=== PATIENT | female | born 1990 | race Caucasian/White ===

== ENCOUNTER 2018-11-29 09:51 | Inpatient (IN) ==
[2018-11-29] MEDS ORDERED: TYLENOL PO PRN (12:15)
[2018-11-29] MEDS ORDERED: PHENOBARBITAL IV PRN (12:15)
[2018-11-29] MEDS ORDERED: SINEMET 25/100 PO PRN (12:15)
[2018-11-29] MEDS ORDERED: MOTRIN PO PRN (12:15)
[2018-11-29] MEDS ORDERED: IMODIUM PO PRN (12:15)
[2018-11-29] MEDS ORDERED: BENTYL PO PRN (12:15)
[2018-11-29] MEDS ORDERED: ZOFRAN IV PRN (12:15)
[2018-11-29] MEDS ORDERED: D5W 1,000 ML IV PRN (12:15)
[2018-11-29] MEDS ORDERED: SENOKOT PO PRN (12:15)
[2018-11-29] MEDS ORDERED: DULCOLAX PR PRN (12:15)
[2018-11-29] MEDS ORDERED: TUBERSOL ID ONE (12:15)
[2018-11-29] MEDS ORDERED: NICODERM PATCH TD PRN (12:15)
[2018-11-29] MEDS ORDERED: SUBOXONE 2 MG/0.5 MG FILM SL SCH (12:15)
[2018-11-29] MEDS ORDERED: LIBRIUM PO PRN (12:15)
[2018-11-29] MEDS ORDERED: DESYREL PO PRN (12:15)
[2018-11-29] MEDS ORDERED: MAALOX PLUS LIQUID PO PRN (12:15)
[2018-11-29] MEDS ORDERED: ZOFRAN ODT PO PRN (12:15)
[2018-11-29 12:55] LABS: UR AMPHETAMINES QUAL NONE DETECTED (NONE DETECT); UR BARBITUATES QUAL NONE DETECTED (NONE DETECT); UR BENZODIAZEPIN QUAL NONE DETECTED (NONE DETECT); UR CANNABINOIDS QUAL NONE DETECTED (NONE DETECT); UR COCAINE QUAL NONE DETECTED (NONE DETECT); UR METHADONE QUAL NONE DETECTED (NONE DETECT); UR METHAMPHETAMINE QUAL NONE DETECTED (NONE DETECT); UR OPIATES QUAL NONE DETECTED (NONE DETECT); UR OXYCODONE QUAL NONE DETECTED (NONE DETECT); UR PCP QUAL NONE DETECTED (NONE DETECT); UR PROPOXYPHENE QUAL NONE DETECTED (NONE DETECT); UR TCA QUAL NONE DETECTED (NONE DETECT)
[2018-11-29 12:59] LABS: HEMATOCRIT 36.2 % (37.0-47.0); HEMOGLOBIN 12.1 g/dL (12.0-16.0); MCH 32.2 PG (27-31); MCHC 33.4 g/dL (33-37); MCV 96.3 FL (81-99); MPV 9.5 FL (7.4-10.4); RBC 3.76 XMIL (4.2-5.4); WBC 7.2 X1000 (4.8-10.8)
[2018-11-29 13:21] LABS: AGAP 11; ALBUMIN 4.2 g/dL (3.5-5.0); ALKALINE PHOSPHATASE 89 U/L (32-104); BUN 8 mg/dL (8-22); CALCIUM 8.1 mg/dL (8.8-10.2); CHLORIDE 104 mmol/L (98-107); COSMO 281; CREATININE 0.5 mg/dL (0.5-0.9); ESTIMATED GFR > 60; GLUCOSE 97 mg/dL (70-104); GOT 15 U/L (10-30); GPT 16 U/L (10-36); POTASSIUM 4.6 mmol/L (3.5-5.1); SODIUM 142 mmol/L (136-145); TCO2 27 mmol/L (25-35); TOTAL BILIRUBIN < 0.15 mg/dL (0.20-1.00); TOTAL PROTEIN 7.2 g/dL (6.3-8.3)
[2018-11-29 13:30] LABS: INR 0.85
[2018-11-29 13:31] LABS: AMYLASE 54 U/L (20-200); LIPASE 16 U/L (13-60)
[2018-11-29 15:13] LABS: URINE SOURCE CLEAN CATCH
[2018-11-29 15:23] LABS: BILIRUBIN URINE NEGATIVE (NEGATIVE); BLOOD URINE NEGATIVE (NEGATIVE); CLARITY CLEAR (CLEAR); COLOR YELLOW; GLUCOSE URINE NEGATIVE (NEGATIVE); KETONE URINE NEGATIVE (NEGATIVE); LEUKOCYTES URINE NEGATIVE (NEGATIVE); NITRITE URINE NEGATIVE (NEGATIVE); PROTEIN URINE NEGATIVE (NEGATIVE); UROBILINOGEN URINE NORMAL
[2018-11-29] MEDS: SUBOXONE 2 MG/0.5 MG FILM SL SCH (19:47)
[2018-11-29] MEDS: ROBAXIN PO PRN (23:17)
[2018-11-29] MEDS: SEROQUEL PO PRN (23:17)
[2018-11-29] MEDS: ATARAX PO PRN (23:26)
[2018-11-30] MEDS: SUBOXONE 2 MG/0.5 MG FILM SL SCH ×2 (06:44→17:58)
[2018-11-30] MEDS: PROTONIX PO SCH (06:44)
[2018-11-30] MEDS: THERA M PLUS PO SCH (09:52)
[2018-11-30] MEDS: FOLIC ACID PO SCH (09:53)
[2018-11-30] MEDS: VITAMIN B-1 PO SCH (09:53)
[2018-11-30] MEDS: PREDNISONE PO SCH ×2 (10:01→21:33)
[2018-11-30] MEDS: ROBAXIN PO PRN (12:52)
[2018-11-30] MEDS: ATARAX PO PRN (12:53)
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
--- NOTE | 2018-11-30 16:21 | PROGRESS NOTE ---
DATE: 11/30/2018 SUBJECTIVE: The patient notes that she is starting to feel a little bit better, less muscle aches. Denies any nausea or vomiting. Denies any fevers. PHYSICAL EXAMINATION: Vital Signs: Temperature 97 degrees, pulse 88, respiratory 20, BP 96/51. General: Patient is awake, alert. She is in no distress. HEENT: Normocephalic. Neck: Supple. CV: Regular rate. No murmurs. Chest: Clear. Abdomen: Soft. Extremities: Moves all extremities. ASSESSMENT: 1. Nausea and vomiting. 2. Abdominal pain. 3. Myalgias. 4. Paresthesias. 5. Paroxysmal sweating. 6. Polysubstance use and abuse. PLAN: We will continue patient in the hospital. Continue counseling. Continue Suboxone. Further orders as needed. -7 cc: Ryan Patel MD
--- NOTE | 2018-11-30 16:21 | PROGRESS NOTE ---
DATE: 11/30/2018 SUBJECTIVE: Patient states she feels terrible this morning. Notes that she was feeling much better on the 4 mg dose. However, when she decreased to the 10 mg dose, started having abdominal pain, muscle aches and sweating again. PHYSICAL EXAMINATION: Vital Signs: Reviewed and stable. She is awake, alert. She is in no current respiratory distress, although she is somewhat ill appearing. She is more fidgety, anxious than she was on yesterday's exam. Vital Signs: Temperature 97.5, pulse 88, respiratory 20, BP 98/51. HEENT: Normocephalic. Neck: Supple. Cardiovascular: Regular rate. No murmurs. Chest: Clear, nonlabored. Abdomen: Soft, nondistended. Extremities: Moves all extremities. Neurologic: No changes. ASSESSMENT: 1. Nausea and vomiting. 2. Abdominal pain. 3. Myalgias. 4. Paresthesias. 5. Paroxysmal sweating. 6. Opiate abuse withdrawal and stabilization. PLAN: We will increase her suboxone to see if helps with her symptoms. Continue counseling. cc: Ryan Patel MD MTD
[2018-11-30] MEDS: SEROQUEL PO PRN (21:33)
[2018-12-01] MEDS: PROTONIX PO SCH (06:22)
[2018-12-01] MEDS: SUBOXONE 2 MG/0.5 MG FILM SL SCH (06:23)
[2018-12-01] MEDS ORDERED: [UNRECOGNIZED DRUG - OTHER] PO SCH (09:45)
[2018-12-01] MEDS: PREDNISONE PO SCH ×2 (10:10→21:57)
[2018-12-01] MEDS: FOLIC ACID PO SCH (10:10)
[2018-12-01] MEDS: VITAMIN B-1 PO SCH (10:10)
[2018-12-01] MEDS: THERA M PLUS PO SCH (10:10)
[2018-12-01] MEDS: ATARAX PO PRN ×2 (11:03→22:00)
[2018-12-01] MEDS: PATIENT'S OWN MED PO SCH (15:10)
[2018-12-01] MEDS: SUBOXONE 8 MG/2 MG FILM SL SCH ×2 (18:54→21:58)
[2018-12-01] MEDS: SEROQUEL PO PRN (21:57)
[2018-12-01] MEDS: ROBAXIN PO PRN (21:57)
[2018-12-02] MEDS: PROTONIX PO SCH (06:12)
[2018-12-02] MEDS: VITAMIN B-1 PO SCH (08:18)
[2018-12-02] MEDS: THERA M PLUS PO SCH (08:19)
[2018-12-02] MEDS: PREDNISONE PO SCH (08:19)
[2018-12-02] MEDS: FOLIC ACID PO SCH (08:19)
[2018-12-02] MEDS: SUBOXONE 8 MG/2 MG FILM SL SCH (08:19)
[2018-12-02] MEDS: PATIENT'S OWN MED PO SCH (08:19)
--- NOTE | 2018-12-02 11:36 | PROGRESS NOTE ---
DATE: 12/01/2018 SUBJECTIVE: Patient notes overall she is feeling a lot better, but still having some withdrawal symptoms, still having muscle aches and sweating. OBJECTIVE: General: Reviewed and stable, she is awake, alert. She is in no current distress. Vitals: Temperature 97.5 degrees, pulse 88, respiratory rate 20, blood pressure stable. HEENT: Normocephalic. Neck: Supple. Cardiovascular: Regular rate. No murmurs. Chest: Clear. Abdomen: Soft. Extremities: Moves all extremities. ASSESSMENT: 1. Nausea and vomiting. 2. Abdominal pain. 3. Myalgias. 4. Paresthesias. 5. History of HIV. 6. Polysubstance use and abuse. PLAN: 1. We will increase patient's Suboxone to 8 mg. We will attempt to restart her HIV medication if she is able to get someone to bring that to her. The hospital does not currently have medication that she is on at home, although she notes she has not been taking it on any regular basis. 2. We will increase Suboxone as she tolerates. Hopefully she can discharge home over the next 1 or 2 days. cc: Ryan Patel MD
[2018-12-02 11:38] VITALS: BP 114/74
--- NOTE | 2018-12-02 13:59 | DISCHARGE SUMMARY ---
ADMISSION DATE: 11/29/2018 DISCHARGE DATE: 12/02/2018 DISCHARGE DIAGNOSES: 1. Nausea and vomiting. 2. Abdominal pain. 3. Myalgias. 4. Paresthesias. 5. Paroxysmal sweating. 6. Opiate abuse, withdrawal, and stabilization, 7. Chronic anxiety and depression. 8. Human immunodeficiency virus. 9. Bipolar. CONSULTATIONS: None. PROCEDURES: None. BRIEF HOSPITAL COURSE: Patient is a 28-year-old female who presented to [facility] program secondary to nausea, vomiting, abdominal pain, myalgias, and paresthesias. She has been abusing opiates. We admitted her to the hospital, stabilized her on Suboxone. We did have to increase the dose to 8 mg to fully improve her withdrawal symptoms. Otherwise, she had an uneventful hospital course. She was not restarted on her HIV medication as she apparently does not have this prescription at home and the pharmacy from the hospital also does not have it. DISPOSITION: Patient will be discharged home. Discussed with patient that it would be highly unlikely that Suboxone would cause weight gain and Subutex would not. Discussed that we do not have Subutex unless you are or have recently been on methadone and either way, that is a finite prescription. She will continue on Suboxone at home. I did discuss with her the importance of calling her HIV Clinic, Clinic, at [place] first thing in the morning to make sure what dose and what medication that they want her to be on for her HIV. Discussed with her the importance of avoidance of all triggers to include people, places, and situations. TIME SPENT: Greater than 30 minutes were spent in total care. cc: Ryan Patel MD MTDD
== END 2018-12-02 14:55 | disposition home or self-care (01) | DRG 897 ==
LOC: P.DIRADM 10:18 → P.MEDSURG 10:36
PROVIDERS: ADMIT Family Medicine; ATTEND Family Medicine
CPT/HCPCS: 80053; 80101; 80104; 80196; 80301; 80305; 80307; 80320; 80324; 80329; 80345; 80346; 80353; 80358; 80361; 80365; 81001; 81025; 82003; 82055; 82150; 83690; 83992; 84443; 84703; 85025; 85027; 85610; 99283; A9270; G0431; G0434; G0477; G0479; G0480; G6038; G6039; G6040; J7506; J7512